=== PATIENT | female | born 1965 | race Caucasian/White ===

== ENCOUNTER 2018-10-30 06:11 | Day surgery (SDC) | payer BC, SELFPAY ==
[2018-10-30] VITALS (8 sets, daily range): BP systolic 90–128; BP diastolic 60–81; PULSE 42–55; RESP 12–20; TEMP 35–36.6; O2SAT 96–100
--- NOTE | 2018-10-30 06:32 | W.PM.OP ---
Date of service: 10/30/18 Time of Service: 07:58 Operative Note DATE OF PROCEDURE: 10/30/18 PRE-OP DIAGNOSIS: Biliary Dyskinesia POST-OP DIAGNOSIS: same PROCEDURE: Laparoscopic Cholecystectomy SURGEON: Corinna Ford COLUMNIST/COMMENTATOR: Jeri Lugo ANESTHESIA: GETA (Adore Valdez, [employer]/ ASA 2), local (1% Lidocaine mixed with 0.5% Marcaine) and other (Erector spine block- bupivocaine and exparel) ESTIMATED BLOOD LOSS: 50 PATHOLOGY: other (Gallbladder and content) COMPLICATIONS: None Patient was transported to: PACU Patient's condition: stable Indications: Mrs. Villatoro is a pleasant 53 year old female whom I saw in the office with abdominal pain, bloating and diarrhea. HIDA scan with CCK showed an EF of 8%. Risks, benefits, complications were reviewed with the patient in the office. Complications include but are not limited to bleeding, infection, injury to stomach, small bowel and large bowel, injury to the pancreas, injury to the common bile duct necessitating drainage and referral to tertiary center for repair, bile leak, adverse reactions to the medications, complications of intubation including a sore throat or injury to the uvula, LA, stroke and even . Questions were entertained and answered to her satisfaction and she wished to proceed. No guarantees were given or implied. Findings: Normal appearing Gallbladder. Procedure Description: After informed consent was obtained the patient was taken to the OR and anesthesia performed a erector spine block for postoperative comfort. Once the block was in place the patient was placed in a supine position and monitors were applied. SCDs were applied to her lower extremities and she was placed under general anesthesia and intubated without difficulty. Her abdomen was then prepped and draped in a sterile fashion using ChloraPrep. At this point a timeout was done and the patient's name, date of , procedure type, allergies to medications, metal in her body, antibiotic prohylaxis and DVT prophylaxis were reviewed, and fire risk was assessed. At this point half percent Marcaine with epi was injected just above the umbilicus into the dermis and subcutaneous tissue. A 5 mm incision was made with an 11 blade. The skin next to the incision was grasped with penetrating towel clamps and while pulling up on the skin a 5 mm port was placed under direct visualization. The abdomen was insuflated and the allen was placed back in and the mesentery was inspected for any injuries. No injuries were noted. Next 3 more ports were placed. A 12 mm port was placed in the subxiphoid area and two 5 mm ports were placed in the right upper quadrant. The liver was inspected and looked smooth. The patient's bed was then turned to the left and her head was brought up. The gallbladder was grasped at the body and pushed towards the right shoulder, this allowed me to visualize the neck of the gallbladder. The neck was grasped and pulled towards the right flank and down allowing me to visualize the lymph node. Using a [place] dissector with cautery the lymph node was gently dissected away from the tissues and the fatty tissue was also dissected away. The cystic duct was identified it was normal in size. The duct was dissected 360 degrees using the [place] dissector in order for me to visualize its entrance into the gallbladder. Liver was noted behind it. There were no other structures right behind. Critical view was achieved. 3 clips were placed one proximal and 2 distal and the cystic duct was cut. The cystic artery was then identified and dissected 360 degrees. It was located just medial to the cystic duct. It was visualized going into the gallbladder. Once dissected 3 more clips were placed one proximal and 2 distal and the artery was cut. Using the hook dissector the gallbladder was then dissected away from the liver bed and placed into an Endo Catch bag and pulled through the 12 mm port site. The 12 mm port was placed back into the abdomen under direct visualization. The liver bed was inspected no bleeding was noted. The abdomen was then irrigated with a 200 cc of normal saline until the effluent was clear. Once all the fluid was suctioned out, the rest of the local anesthetic mixture was injected above the liver to help with postoperative right shoulder pain. The 12 mm and the 2 right upper quadrant ports were removed under direct visualization and no bleeding was noted from the fascia. The abdomen was deflated completely and lastly the umbilical port was removed. The skin was cleaned and the incisions were closed with 4-0 Vicryl. The skin was dried and skin affix was applied over the closed incisions. Needle and sponge counts were correct at the end of the case. At this point the patient was woken up, extubated and taken back to recovery in stable condition. There were no immediate complications.
--- NOTE | 2018-10-30 06:37 | PDOC.DSDIS_ITS ---
Discharge Plan Disposition Patient Disposition: HOME Condition: Good Discharge Details Reason For Visit: Biliary Dyskinesia Attending Provider: Corinna Ford Primary Care Provider: Ivette Crow Home Meds and New Rx's Prescriptions: Continued sumatriptan succinate [Imitrex] 100 mg tablet 100 mg PO ONCE RF: 0 omeprazole 40 mg capsule,delayed release(DR/EC) 40 mg PO DAILY RF: 0 atorvastatin 10 mg tablet 20 mg PO DAILY RF: 0 ascorbic acid (vitamin C) [Vitamin C] 500 mg Tablet 1,000 mg PO DAILY RF: 0 cholecalciferol (vitamin D3) [Vitamin D3] 1,000 unit Capsule 1,000 unit PO DAILY RF: 0 vitamin B complex Capsule 1 cap PO DAILY RF: 0 red yeast rice 600 mg Capsule 1,200 mg PO DAILY RF: 0 calcium carb-magnesium ox,carb 200 mg calcium- 100 mg Tablet,Chewable 1 tab PO DAILY RF: 0 Chaga Tea RF: 0 Tumeric 500 mg PO DAILY RF: 0 Discharge Instructions Instructions: Laparoscopic Cholecystectomy (DC) Additional Instructions: Activity at Home after surgery: 1. Make sure you walk outside at least 4 times per day 2. You should be able to climb a flight of stairs 3. No driving while in pain or taking pain medications 4. No strenuous activity or heavy lifting for 2 weeks (laparoscopic surgery) Diet, Nutrition, & wound healin. Avoid alcohol until after you are recovered from your surgery 2. Make sure to eat plenty of lean protein (meat, fish, eggs, cottage cheese, beans) 3. Eat a variety of fruits and vegetables. Eat plenty of high fiber foods to avoid constipation. 4. Drink plenty of liquids to stay hydrated and avoid constipation Pain Medications: 1. Alternate Tylenol 650 mg and Ibuprofen 600 mg every 3 hours 2. If a narcotic has been prescribed take as directed only for breakthrough pain For Constipation: 1. Take MiraLax as needed for constipation Other: 1. You may shower daily. Do not scrub the incisions 2. Do not soak the incisions for 1 week 3. You may alternate ice and heat as needed for pain and swelling Wound Care: 1. Keep the incisions clean and dry Please call our office if you develop: 1. Fevers >101.5 2. Nausea or Vomiting 3. Worsening pain 4. Redness and thick discharge from the wounds If after hours please call the Hospital at and ask to speak to the on-call surgeon Stand Alone Forms: DSU Post op Instructions, Deangelo Kimble (DSU) Referrals: Corinna Ford MD [ [facility] STAFF PHYSICIAN] - 11/13/18 1:30 pm Activity:: Activity as Tolerated Diet:: low fat Discharge Orders Discharge Orders: Discharge Order (Routine); Ordered 10/30/18 Ordered By: Corinna Ford DS: Diagnosis Discharge Diagnosis (1) S/P laparoscopic cholecystectomy: Status: Acute
[2018-10-30] MEDS: Lactated Ringers 1,000 ML 80 ML IV (06:58)
[2018-10-30] MEDS: Normal Saline 1,000 ML 80 ML IV ×2 (07:20→09:49)
[2018-10-30] MEDS: Bupivacaine 0.5% Pres-Free 30 ML VIAL (07:36)
[2018-10-30] MEDS: Bupivacaine LIPOSOME/PF 133 MG/10 ML VIAL IJ (07:36)
[2018-10-30] MEDS: PIPERACILLIN/TAZO 3.375 GM in Normal Saline 50 ML 100 ML IVPB (07:50)
[2018-10-30] MEDS: Lidocaine 1% Multi-Dose 50 ML VIAL (07:54)
--- NOTE | 2018-10-30 08:15 | GB_PTH ---
PATIENT: Monique Villatoro LOC: [facility] U#:[id number] AGE/SX: 53/F ROOM: RE10/30/[address]: Corinna Ford MD : 1965 BED: DIS: 10/30/2018 SPEC #: [id number] RECD: 10/30/18 12:42 STATUS: HALEIGH REJorge #: [id number] YADIRA: 10/30/18 08:[address]: Corinna Ford DEPT: Surgical Specimen RECD BY: Yvette Adamson ENTERED: 10/30/18 12:43 SP TYPE: GB OTHR DR: Ivette Crow Tissues: 1 - GALLBLADDER Procedures: GROSS AND MICRO LEVEL 3 Comments: [id number]
[2018-10-30] MEDS: fentaNYL 100 MCG/2 ML VIAL IVP (09:20)
== END 2018-10-30 10:45 | disposition home or self-care (01) ==
PROVIDERS: PCP Internal Medicine; Visit Provider Surgery
PROC: 0FT44ZZ Resection of Gallbladder, Percutaneous Endoscopic Approach (ICD-10-PCS; CPT 47562; principal; 2018-10-30 07:30)
DX: K81.1 Chronic cholecystitis (principal); Z85.038 Personal history of other malignant neoplasm of large intestine; Z90.49 Acquired absence of other specified parts of digestive tract
CPT/HCPCS: 47562; 76942; 88304; J1100; J1885; J2250; J2405; J2543; J3010

== ENCOUNTER 2020-11-23 10:11 | Day surgery (SDC) | payer BC, SELFPAY ==
--- NOTE | 2020-11-23 06:47 | W.COLOREPORT ---
Date of service: 11/23/20 Time of Service: 11:13 Colonoscopy Report Date of procedure: 11/23/20 Pre-op diagnosis general: Hx of colon Cancer Post-op diagnosis procedure note: same (? polyp) Procedure: Colonoscopy with biopsies Surgeon: Corinna Ford Anesthesia Type: General:No Airway (ASA 2/ Parish Gilmore CRNA) Estimated blood loss (mL): 2 Pathology: other (ascending biopsies) Complications: None Disposition: same day Indications: The patient is here for Colonoscopy pre-op. Her last screening was in 2015 and was unremarkable. Follow up at that time was recommended for one year. She has no family history of colon cancer. She has not had any bowel habit changes. -Discussed colonoscopy bowel prep as well as the procedure. Discussed possible complications of the procedure to include bleeding, pain, perforation, missed small lesion/polyp, sore throat, aspiration and adverse reaction to the medications. Questions were answered to patient?s satisfaction. No guarantees were implied or given. Prep: Miralax/Dulcolax Procedure Start Time: :13 Procedure End Time: :29 Retraction Time: 11 miinute Findings: in the ascending colon there was an area that looked like possibly a small polyp. This area was removed Procedure Description: After informed consent was obtained the patient was taken to the procedure room and placed in a left decubitous position. Monitors were applied and a time out was done. The patients name, date of , procedure, allergies to medications and metal in their body was reviewed. The patient was then sedated. Once sedated and comfortable a rectal exam was done. External exam was normal. Internal exam revealed a normal sphincter tone and no palpable masses. The scope was then introduced and retro-flexed. No internal hemorrhoids, polyps or masses were identified on retro-flexion. The scope was then advanced to the cecum without difficulty. The ileocecal vlave and appendiceal orifice were identified. The prep was adequate. The scope was then slowly retracted over 11 minutes back into the rectum. Polyps were removed with cold forceps in the ascending colon. There was no diverticulosis noted. The scope was removed and the patient was woken up and taken back to Same day surgery in stable condition. The patient tolerated the procedure well and there were no immediate complications. Follow up: The patient should follow up in 3 years unless they develop changes in bowel habits or other new gastrointestinal complaints.
--- NOTE | 2020-11-23 06:48 | W.PM.DSUDISC ---
Discharge Plan Disposition Patient Disposition: HOME Condition: Good Discharge Details Reason For Visit: Colonoscopy Attending Provider: Corinna Ford Primary Care Provider: Ivette Crow Home Meds and New Rx's Prescriptions: Continued sumatriptan succinate [Imitrex] 100 mg tablet 100 mg PO ONCE RF: 0 omeprazole 40 mg capsule,delayed release(DR/EC) 40 mg PO DAILY RF: 0 amoxicillin 250 mg capsule 250 mg PO Q8H RF: 0 atorvastatin 10 mg tablet 20 mg PO DAILY RF: 0 Fish Oil Extra Strength 435-880 mg Capsule PO RF: 0 acetaminophen 650 mg Tablet Extended Release 650 mg PO Q12H RF: 0 ascorbic acid (vitamin C) [Vitamin C] 500 mg Tablet 1,000 mg PO DAILY RF: 0 cholecalciferol (vitamin D3) [Vitamin D3] 1,000 unit Capsule 1,000 unit PO DAILY RF: 0 vitamin B complex Capsule 1 cap PO DAILY RF: 0 calcium carb-magnesium ox,carb 200 mg calcium- 100 mg Tablet,Chewable 1 tab PO DAILY RF: 0 Chaga Tea RF: 0 Tumeric 500 mg PO DAILY RF: 0 Discontinued bisacodyl [Dulcolax (bisacodyl)] 5 mg tablet,delayed release (DR/EC) 5 mg PO ONCE Qty: 4 RF: 0 polyethylene glycol 3350 17 gram/dose powder 238 g PO ONCE Qty: 238 RF: 0 Discharge Instructions Additional Instructions: Findings: ? one small polyp Follow up: will depend on pathology Please call if you develop: fevers >101.5 Nausea or Vomiting Abdominal pain that is not transient Rectal bleeding that is more then a tbsp A hard abdomen and inability to pass gas DAY SURGERY UNIT POST ENDOSCOPY INSTRUCTIONS Instructions for everyone who is given Anesthesia: For your safety, please do the following for the next 24 Hours: a. Do not drive or operate dangerous equipment b. Do not drink alcohol beverages or use any recreational drugs for the first 24 hours or while taking pain medications. The medications in your body may have a reaction that can be dangerous. c. Do not make any important decisions or sign any important papers 1. Generally there are no restrictions on your activity after a day or so has gone by, but you may feel a bit fatigued for a few days. 2. After you arrive home you may have a light meal and return to a normal diet as you can tolerate it without feeling sick to your stomach. 3. After surgery, you may feel pain or discomfort. This should be only transient, but if it persists please contact your doctor. 4. If there are any questions regarding the findings of your procedure, please feel free to contact your doctor. 6. If you are unable to contact your doctor with a problem, contact the hospital at [phone]. 7. Continue all your regular medications unless directed otherwise. I understand the above instructions and have no questions. Signature of Patient or Responsible Adult Escort Date/Time Name of Responsible Adult Escort Signature of Nurse Date/Time Activity:: Activity as Tolerated Diet:: As Tolerated Discharge Orders Discharge Orders: Discharge Order (Routine); Ordered 11/23/20 Ordered By: Corinna Ford
[2020-11-23 10:36] VITALS: BP 131/94; PULSE 71; RESP 16; TEMP 36.2; O2SAT 99
--- NOTE | 2020-11-23 10:59 | W.ANESPRE ---
General Info Date of Service Date Performed: 11/23/20 Height: 5 ft 9 in Weight: 77.2 kg Body Mass Index (BMI): 25.1 Surgical Procedure: Operation Date: 11/23/20 10:50 Proposed Procedures Side Surgeon p Colonoscopy Corinna Ford MD Meds Allergies and Home Medications Allergies Allergy/AdvReac Type Severity Reaction Status Date / Time metoclopramide HCl Allergy Severe convulsions, Unverified 11/23/20 10:39 [From Reglan] tachycardia, chills, fever Home Medication Medication Instructions Recorded omeprazole 40 mg capsule,delayed 40 mg PO DAILY 09/18/18 release sumatriptan succinate 100 mg tablet 100 mg PO ONCE 09/18/18 atorvastatin 10 mg tablet 20 mg PO DAILY 10/05/18 Chaga Tea 10/26/18 Tumeric 500 mg PO DAILY 10/26/18 ascorbic acid (vitamin C) [Vitamin 1,000 mg PO DAILY 10/26/18 C] calcium carb-magnesium ox,carb 1 tab PO DAILY 10/26/18 cholecalciferol (vitamin D3) 1,000 unit PO DAILY 10/26/18 [Vitamin D3] vitamin B complex 1 cap PO DAILY 10/26/18 amoxicillin 250 mg capsule 250 mg PO Q8H 11/13/20 bisacodyl 5 mg tablet,delayed 5 mg PO ONCE #4 tab 11/13/20 release polyethylene glycol 3350 17 238 g PO ONCE #238 g 11/13/20 gram/dose oral powder acetaminophen [Tylenol Extended 650 mg PO Q12H 11/23/20 Release] omega-3 fatty acids-fish oil [Fish cap PO 11/23/20 Oil Extra Strength] Current Visit Medications: Current Medications Generic Name Dose Route Start Last Admin Trade Name Freq PRN Reason Stop Dose Admin Hyoscyamine Sulfate 0.125 mg 11/23/20 06:49 Hyoscyamine 0.125 Mg Sl/Oral/Chew SL DIRECTED PRN Ringer's Solution 1,000 mls @ 80 mls/hr 11/23/20 06:00 IV 12/20/20 23:59 INFUSION EPIFANIO IV Miscellaneous Supplies 1 each 11/23/20 06:00 Iv Access IV 12/20/20 23:59 DIRECTED EPIFANIO Ondansetron HCl 4 mg 11/23/20 06:49 Ondansetron 4 Mg/2 Ml Vial IVP Q4H PRN PRN Nausea / Vomiting Sodium Chloride 0 ml 11/23/20 06:00 Normal Saline Flush 10 Ml Syr IV 12/20/20 23:59 PRN PRN Sodium Chloride 0 ml 11/23/20 06:00 Normal Saline 10 Ml Vial IJ 12/20/20 23:59 DIRECTED PRN Sterile Water 0 ml 11/23/20 06:00 Water,Injection,Sterile 10 Ml Vial IJ 12/20/20 23:59 DIRECTED PRN PFSH Active Problems Active Problems: Problem Status Onset Code Colon cancer C18.9 Postoperative ileus K91.[address] Z92.89 Adverse reaction to antiallergic and antiemetic drugs T45.0X5A Colon adenocarcinoma C18.9 Colonic mass 03/20/15 K63.9 Carcinoma of colon 03/20/15 C18.9 S/P laparoscopic cholecystectomy ~10/30/18 Z90.49 Biliary dyskinesia K82.8 Medical History Medical History Biliary dyskinesia H/O colon cancer, stage III PT. STATES SHE HAS BEEN CLEARED FOR 5 YEARS 11/18/20 History of colon cancer Hyperlipidemia Surgical History Surgical History Colonoscopy - IV Sedation (03/20/15) Colonoscopy - IV Sedation (06/20/16) Hx of arthroscopic knee surgery L knee Mediport placement (04/15/15) DR.TERRY WELLS S/P laparoscopic cholecystectomy (~10/30/18) Sigmoid resection 2014 Tobacco Smoking/Tobacco Use Status: Never Alcohol Alcohol Intake: current Alcohol intake frequency: a few times a week Alcohol type: beer Substance Use Substance use: Occasionally Substance use type: marijuana Details: alcohol: t-2, one beer; marijuana: unknown Vital Signs and Lab Results Vital Signs Most Recent Vital Signs in EMR: Most Recent Vital Signs Temp Pulse Resp BP Pulse Ox 36.2 C L 71 16 131/94 H 99 11/23/20 10:36 11/23/20 10:36 11/23/20 10:36 11/23/20 10:36 11/23/20 10:36 Lab Results Blood Type / Crossmatch: Patient ABO/Rh B Positive 03/30/15 11:20 03/30/15 Antibody Screen Negative 03/30/15 11:20 03/30/15 Complete Blood Count: White Blood Count 8.40 k/cumm (4.4-10.8) 04/03/15 06:04/03/15 Red Blood Count 3.33 m/cumm (4.00-5.20) L 04/03/15 06:04/03/15 Hemoglobin 10.1 g/dL (12.0-15.5) L 04/03/15 06:04/03/15 Hematocrit 30.2 % (36.0-46.0) L 04/03/15 06:04/03/15 Platelet Count 208 x1000/uL (130-400) 04/03/15 06:04/03/15 Complete Metabolic Panel: Sodium Level 137 mmol/L (136-145) 04/03/15 06:04/03/15 Potassium Level 3.8 mmol/L (3.5-5.1) 04/03/15 06:04/03/15 Chloride Level 101 mmol/L (98-107) 04/03/15 06:04/03/15 Carbon Dioxide Level 22.8 mmol/L (21.0-32.0) 04/03/15 06:04/03/15 Blood Urea Nitrogen 7 mg/dL (7-18) 04/03/15 06:04/03/15 Creatinine 0.9 mg/dL (0.6-1.0) 04/03/15 06:04/03/15 Magnesium Level 1.6 mg/dL (1.8-2.4) L 04/03/15 06:04/03/15 Calcium Level 8.3 mg/dL (8.5-10.1) L 04/03/15 06:04/03/15 Albumin 3.5 g/dL (3.4-5.0) 03/20/15 14:03/20/15 Glucose Level 83 mg/dL (70-100) 04/03/15 06:04/03/15 Liver Function Panel: Alanine Aminotransferase (ALT/SGPT) 42 U/L (12-78) 03/20/15 14:03/20/15 Aspartate Amino Transf (AST/SGOT) 24 U/L (15-37) 03/20/15 14:08 03/20/15 Coagulation Panel: No Data to Display Cardiac Panel: No Data to Display Arterial Blood Gas: No Data to Display Venous Blood Gas: No Data to Display Pancreas Panel: No Data to Display Thyroid Panel: No Data to Display Infectious Disease: No Data to Display Blood Cultures: No Data to Display Toxicology Panel: No Data to Display Anesthesia Assessment and Plan Anesthesia History Personal History: No History of Anesthesia Complications Family History: No Family History of Anesthesia Complications Exercise Tolerance Exercise Tolerance: Metabolic Equivalents>4 Pertinent Negatives Pertinent Negatives: No Symptoms of GERD Cardiac & Pulmonary Exam Cardiac Exam: Normal S1/S2 Heart Sounds Pulmonary Exam: Clear Bilateral Breath Sounds Airway Exam Known Difficult Airway: No Mallampati Class: 1 Mouth Opening: Normal (> 3cm) Thyromental Distance: Greater than 3 cm Neck Range of Motion: Full ROM Neck Circumference: Normal Teeth Condition: Normal Dentition Tooth Numberin. Tooth implant work done last ASA Classification ASA Score: ASA 2 Emergency Case?: No NPO Status NPO Status: NPO Clears >2 hours, Solids >8 hours Anesthesia Plan Anesthesia Technique: General Anesthesia Airway Planned: Natural Airway Monitors Used: Standard Monitors
[2020-11-23] MEDS: Lactated Ringers 1,000 ML 80 ML IV (11:00)
--- NOTE | 2020-11-23 11:00 | BOWEL_PTH ---
PATIENT: Monique Villatoro LOC: [facility] U#:[id number] AGE/SX: 55/F ROOM: RE11/23/[address]: Corinna Ford MD : 1965 BED: DIS: 11/23/2020 SPEC #: [id number] RECD: 11/23/20 12:45 STATUS: HALEIGH REJorge #: [id number] YADIRA: 11/23/20 11:[address]: Corinna Ford DEPT: Surgical Specimen RECD BY: Yvette Adamson ENTERED: 11/23/20 12:48 SP TYPE: Bowel OTHR DR: Ivette Crow Tissues: 1 - BIOPSY BOWEL Procedures: GROSS AND MICRO LEVEL 4 Comments: [id number]
[2020-11-23 11:03] VITALS: BMI 25.1
[2020-11-23 11:32] VITALS: BP 99/66; PULSE 66; RESP 16; TEMP 36.4; O2SAT 97
--- NOTE | 2020-11-23 11:34 | W.ANESPOSTOP ---
Postoperative Evaluation Date, Time and Location Date Performed: 11/23/20 Time Performed: 11:34 Patient Location: Day Surgery Unit Vital Signs Most Recent Imported Vital Signs: Most Recent Vital Signs Temp Pulse Resp BP Pulse Ox 36.2 C L 71 16 131/94 H 99 11/23/20 10:36 11/23/20 10:36 11/23/20 10:36 11/23/20 10:36 11/23/20 10:36 Most Recent Manually Entered Vital Signs: Adult Blood Pressure: 99/66 Heart Rate: 60 Respirations: 16 Oxygen Saturation (%): 97 Temperature (C): 36.4 C Pain Score (0-10 Scale): 0 Pain Score Most Recent Pain Score: Most Recent Pain Score Pain Level 0 11/23/20 10:36 Assessment Mental Status: Arousable with meaningful communication Airway and Respiratory Function: Patent airway with normal (patient baseline) respiratory exam Cardiovascular Function: Hemodynamically Stable Hydration Status: Adequately Hydrated Nausea & Vomiting: No Nausea or Vomiting Pain: Pt. Denies Any Pain Peripheral Nerve Block: Patient did not receive a nerve block
[2020-11-23 11:35] VITALS: BP 99/66; PULSE 60; RESP 16; TEMPC 36.4; O2SAT 97
[2020-11-23 12:05] VITALS: BP 112/72; PULSE 55; RESP 16; TEMP 36.2; O2SAT 99
== END 2020-11-23 12:30 | disposition home or self-care (01) ==
LOC: SUR 10:12
PROVIDERS: PCP Internal Medicine; Visit Provider Surgery
PROC: 0DJD8ZZ Inspection of Lower Intestinal Tract, Via Natural or Artificial Opening Endoscopic (ICD-10-PCS; CPT 45378; principal; 2020-11-23 10:45)
DX: Z08 Encounter for follow-up examination after completed treatment for malignant neoplasm (principal); D12.2 Benign neoplasm of ascending colon; Z85.038 Personal history of other malignant neoplasm of large intestine; K21.9 Gastro-esophageal reflux disease without esophagitis; Z98.0 Intestinal bypass and anastomosis status
CPT/HCPCS: 45380; 88305

== ENCOUNTER 2024-07-29 07:01 | Day surgery (SDC) | payer BC, SELFPAY ==
[2024-07-29 07:14] VITALS: BP 137/64; PULSE 57; RESP 16; TEMP 36.3; O2SAT 100
[2024-07-29] MEDS: Lactated Ringers 1,000 ML 80 ML IV (07:35)
--- NOTE | 2024-07-29 07:59 | W.ANESPRE ---
General Info Date of Service Date Performed: 07/29/24 Height: 5 ft 9 in Weight: 73.9 kg Body Mass Index (BMI): 24.0 Surgical Procedure: Operation Date: 07/29/24 08:20 Proposed Procedure Side Surgeon p Rc Myers MD Meds Allergies and Home Medications Allergies Allergy/AdvReac Type Severity Reaction Status Date / Time metoclopramide HCl (From Allergy Severe convulsions, Verified 07/29/24 07:13 Reglan) tachycardia, chills, fever Home Medication ?Medication ?Instructions ?Recorded atorvastatin 10 mg tablet 20 mg PO DAILY 10/05/18 Chaga Tea 10/26/18 Tumeric 500 mg PO DAILY 10/26/18 calcium 200 mg (as 1 tab PO DAILY 10/26/18 carbonate)-magnesium 100 mg chewable tablet vitamin B complex 1 cap PO DAILY 10/26/18 omega-3 fatty acids-fish oil 435 1 cap PO DAILY 11/23/20 mg-880 mg capsule (Fish Oil Extra Strength) montelukast 10 mg tablet 10 mg PO DAILY 06/21/24 bisacodyl 5 mg tablet,delayed 5 mg PO ONCE #4 tabs 06/27/24 release (Dulcolax (bisacodyl)) fhinksncafb-nni-rwlbuifjo-hrb 1 tab PO DAILY 06/27/24 149-hyalur 500 mg-500 mg-66.7 mg tablet (Ufzmqqqvhhm-Ifinzpnsmol-YEK (with antiox)) polyethylene glycol 3350 17 17 g PO ONCE #238 grams 06/27/24 gram/dose oral powder Current Visit Medications: Current Medications Generic Name Dose Route Start Last Admin Trade Name Emma PRN Reason Stop Dose Admin Ringer's Solution 1,000 mls @ 80 mls/hr 07/29/24 07:45 07/29/24 07:35 IV 08/28/24 07:44 80 mls/hr INFUSION EPIFANIO Administration IV Miscellaneous Supplies 1 each 07/29/24 06:00 Iv Access IV 07/29/24 23:59 DIRECTED EPIFANIO Sodium Chloride 0 ml 07/29/24 06:00 Normal Saline Flush 10 Ml Syr IV 07/29/24 23:59 PRN PRN Sodium Chloride 0 ml 07/29/24 06:00 Normal Saline 10 Ml Vial IJ 07/29/24 23:59 DIRECTED PRN Sterile Water 0 ml 07/29/24 06:00 Water,Injection,Sterile 10 Ml Vial IJ 07/29/24 23:59 DIRECTED PRN PFSH Active Problems Active Problems: Problem Status Onset Code Carcinoma of colon Acute 03/20/15 C18.9 Colonic mass Acute 03/20/15 K63.9 Colon adenocarcinoma Acute C18.9 Adverse reaction to antiallergic and antiemetic drugs Acute T45.0X5A Mims catheter in place Acute Z92.89 Postoperative ileus Acute K91.3 Colon cancer Acute C18.9 S/P laparoscopic cholecystectomy Acute ~10/30/18 Z90.49 Biliary dyskinesia Acute K82.8 Medical History Medical History (Updated 07/29/24 @ 08:20 by Logan Myers MD) Right knee meniscal tear Migraine Cholecystitis, unspecified H/O colon cancer, stage III PT. STATES SHE HAS BEEN CLEARED FOR 5 YEARS 11/18/20 Hyperlipidemia History of colon cancer Surgical History Surgical History Hx of arthroscopic knee surgery L knee Sigmoid resection 2014 Mediport placement (04/15/15) DR.TERRY WELLS Colonoscopy - IV Sedation (06/20/16) Colonoscopy - IV Sedation (03/20/15) Tobacco Smoking/Tobacco Use Status: Never Alcohol Alcohol Intake: current Alcohol intake frequency: a few times a week Alcohol type: beer Substance Use Substance use: Occasionally Substance use type: marijuana Vital Signs and Lab Results Vital Signs Most Recent Vital Signs in EMR: Most Recent Vital Signs Temp Pulse Resp BP Pulse Ox 36.3 C L 57 L 16 137/64 100 07/29/24 07:14 07/29/24 07:14 07/29/24 07:14 07/29/24 07:14 07/29/24 07:14 Lab Results Blood Type / Crossmatch: No Data to Display Complete Blood Count: No Data to Display Complete Metabolic Panel: No Data to Display Liver Function Panel: No Data to Display Coagulation Panel: No Data to Display Cardiac Panel: No Data to Display Arterial Blood Gas: No Data to Display Venous Blood Gas: No Data to Display Pancreas Panel: No Data to Display Thyroid Panel: No Data to Display Infectious Disease: No Data to Display Blood Cultures: No Data to Display Toxicology Panel: No Data to Display Anesthesia Assessment and Plan Anesthesia History Personal History: No History of Anesthesia Complications Family History: No Family History of Anesthesia Complications Exercise Tolerance Exercise Tolerance: Metabolic Equivalents>4 Pertinent Negatives Pertinent Negatives: No Symptoms of GERD, No Major Cardiovascular Symptoms or Complaints, No Major Pulmonary Symptoms or Complaints and No History of CVA/TIA Cardiac & Pulmonary Exam Cardiac Exam: Normal S1/S2 Heart Sounds Pulmonary Exam: Clear Bilateral Breath Sounds Implantable Cardiac Device Does patient have a Pacemaker or an ICD?: No Airway Exam Known Difficult Airway: No Mallampati Class: 1 Mouth Opening: Normal (> 3cm) Thyromental Distance: Greater than 3 cm Neck Range of Motion: Full ROM Neck Circumference: Normal Teeth Condition: Normal Dentition ASA Classification ASA Score: ASA 2 Emergency Case?: No NPO Status NPO Status: NPO Clears >2 hours, Solids >8 hours Anesthesia Plan Resuscitation Status: Full Code Anesthesia Technique: General Anesthesia Airway Planned: Natural Airway Monitors Used: Standard Monitors Preoperative Comments:: 59 y/o female with history of migraines, colon cancer (2015 s/p sigmoid resection), GERD and HLD presents for colonoscopy screening. Her last screening was in 2020, which was remarkable for a sessile serrated polyp. She denies a family history of colon cancer.
--- NOTE | 2024-07-29 08:19 | W.SURGCON ---
Date of service: 07/29/24 Time of Service: 08:19 Assessment and Plan Assessment and plan (1) Colon cancer: Status: Chronic Assessment and plan: 59-year-old woman 10 years out from colon cancer treatment. Due for 3-year surveillance because of history of sessile serrated polyps. Overall plan: Colonoscopy History of Present Illness Narrative: 59-year-old woman had colon cancer about a decade ago. She has been doing well. She has a history of sessile serrated adenomatous polyps. She is due for 3-year surveillance colonoscopy. She has no symptoms or complaints. PFSH All Active Problems (Updated 07/29/24 @ 08:20 by Logan Myers MD) Carcinoma of colon (Acute 03/20/15) Colonic mass (Acute 03/20/15) Colon adenocarcinoma (Acute) Adverse reaction to antiallergic and antiemetic drugs (Acute) Mims catheter in place (Acute) Postoperative ileus (Acute) Colon cancer (Chronic) S/P laparoscopic cholecystectomy (Acute ~10/30/18) Biliary dyskinesia (Acute) Medical History (Updated 07/29/24 @ 08:20 by Logan Myers MD) Right knee meniscal tear Migraine Cholecystitis, unspecified H/O colon cancer, stage III PT. STATES SHE HAS BEEN CLEARED FOR 5 YEARS 11/18/20 Hyperlipidemia History of colon cancer Surgical History Hx of arthroscopic knee surgery L knee Sigmoid resection 2015 Mediport placement (04/15/15) DR.TERRY WELLS Colonoscopy - IV Sedation (06/20/16) Colonoscopy - IV Sedation (03/20/15) Family History Other Heart disease Personal history of malignant neoplasm Social History Smoking/Tobacco Use Status: Never Smoking risk assessment performed?: Yes Alcohol Intake: current Alcohol Intake frequency: a few times a week Alcohol type: beer Drug use: Occasionally Substance use type: marijuana Household members: spouse Housing: house Education Level: master's degree Additional Social history: [employer] Exam Narrative Exam Narrative: Gen: Non-toxic, comfortable and interactive Neuro: Alert and oriented x3 Psych: Good mood and affect. Good insight and understanding into condition. Chest: Non-labored breathing, no wheezing, no visible shortness of breath. Heart: Regular Results Last Vital Signs Temp 97.3 F L 07/29/24 07:14 Pulse 57 L 07/29/24 07:14 Resp 16 07/29/24 07:14 BP 137/64 07/29/24 07:14 Pulse Ox 100 07/29/24 07:14
[2024-07-29 08:20] VITALS: BMI 24.0
[2024-07-29 08:50] VITALS: BP 109/80; PULSE 50; RESP 16; TEMP 36.2; O2SAT 99
--- NOTE | 2024-07-29 09:00 | W.COLOREPORT ---
Date of service: 07/29/24 Time of Service: 09:00 Colonoscopy Report Procedure Description: PROCEDURES PERFORMED: 1. Colonoscopy PREOPERATIVE DIAGNOSIS: Surveillance colonoscopy, colon cancer history, sessile serrated polyp history POSTOPERATIVE DIAGNOSIS: Mild grade 1 internal hemorrhoids SURGEON: Aurelio Myers MD INDICATION FOR PROCEDURE: the patient is a 59-year-old woman with a personal history of colon cancer. She also has a history of sessile serrated polyps that have been removed since. She has no symptoms. Last colonoscopy was 3 years ago. FINDINGS: Normal terminal ileum. No new polyps were found. Normal?appearing anastomosis. Mild grade 1 internal hemorrhoids. No diverticular disease. SURVEILLANCE interval/FOLLOW-UP: Recommend 3 years because of the history SPECIMENS: None EBL: Minimal COMPLICATIONS: None QUALITY of prep: Excellent Procedure in detail: The patient gave written consent and was in agreement with the indications, the potential risks as well as the benefits of the procedure. They were taken to the endoscopy suite and laid in the left lateral decubitus position. A timeout was performed and anesthesia was administered which was tolerated well. I started the procedure. Digital rectal and visual examination was performed and grossly within normal limits. A well-lubricated flexible colonoscope was then introduced and passed without any notable difficulty all the way to the cecum identified by the ileocecal valve and the appendiceal orifice. The terminal ileum was intubated and looked normal. The scope was then slowly withdrawn with the above-noted findings. The patient tolerated the procedure well and was taken to the PACU in hemodynamically stable condition.
--- NOTE | 2024-07-29 09:02 | W.PM.DSUDISC ---
Date of service: 07/29/24 Discharge Plan Disposition Patient Disposition: Home Condition: Good Discharge Details Attending Provider: Logan Myers Primary Care Provider: Ivette Crow Home Meds and New Rx's Prescriptions: No Action atorvastatin 10 mg tablet 20 mg PO DAILY jkibwrer-obc-oewuh-wio847-ufbp [Ajyebp-Bymhn-OKB (with antiox)] 500-500-66.7 mg tablet 1 tab PO DAILY bisacodyl [Dulcolax (bisacodyl)] 5 mg tablet,delayed release (DR/EC) 5 mg PO ONCE Qty: 4 0RF Rx Instructions: Take per colonoscopy instructions provided by ordering providers office polyethylene glycol 3350 17 gram/dose powder 17 g PO ONCE Qty: 238 0RF Rx Instructions: Take per colonoscopy instructions provided by ordering providers office montelukast 10 mg tablet 10 mg PO DAILY Fish Oil Extra Strength 435-880 mg Capsule 1 cap PO DAILY vitamin B complex Capsule 1 cap PO DAILY calcium carb-magnesium carb,ox 200 mg calcium- 100 mg Tablet,Chewable 1 tab PO DAILY Chaga Tea Tumeric 500 mg PO DAILY Discharge Instructions Additional Instructions: FINDINGS: No new polyps are found. No evidence of any concerning growth around the anastomosis (connection) from your prior surgery. Because of the history of the cancer and the polyps in the past, I would recommend repeating another scope in 3 years. Activity:: Activity as Tolerated Diet:: As Tolerated DS: Diagnosis Discharge Diagnosis (1) Colon cancer: Status: Chronic
[2024-07-29 09:15] VITALS: BP 141/69; PULSE 55; RESP 16; TEMP 36.2; O2SAT 98
--- NOTE | 2024-07-29 09:39 | W.ANESPOSTOP ---
Postoperative Evaluation Date, Time and Location Date Performed: 07/29/24 Time Performed: 09:15 Patient Location: Day Surgery Unit Vital Signs Most Recent Imported Vital Signs: Most Recent Vital Signs Temp Pulse Resp BP Pulse Ox 36.2 C L 55 L 16 141/69 H 98 07/29/24 09:15 07/29/24 09:15 07/29/24 09:15 07/29/24 09:15 07/29/24 09:15 Pain Score Most Recent Pain Score: Most Recent Pain Score Pain Level 0 07/29/24 09:15 Assessment Mental Status: Awake (Alert & Oriented to Patient Baseline) Airway and Respiratory Function: Patent airway with normal (patient baseline) respiratory exam Cardiovascular Function: Hemodynamically Stable Hydration Status: Adequately Hydrated Nausea & Vomiting: No Nausea or Vomiting Pain: Pt. Denies Any Pain Peripheral Nerve Block: Patient did not receive a nerve block
== END 2024-07-29 09:37 | disposition home or self-care (01) ==
PROVIDERS: PCP Internal Medicine; Visit Provider Student in an Organized Health Care Education/Training Program
PROC: 0DJD8ZZ Inspection of Lower Intestinal Tract, Via Natural or Artificial Opening Endoscopic (ICD-10-PCS; CPT 45378; principal; 2024-07-29 08:15)
DX: Z12.11 Encounter for screening for malignant neoplasm of colon; Z85.038 Personal history of other malignant neoplasm of large intestine; K64.0 First degree hemorrhoids
CPT/HCPCS: 45378; 00123; J2405; J2704